=== PATIENT | female | born 1940 | race Two or more races ===

== ENCOUNTER 2017-02-26 15:40 | Outpatient (CLI) | payer MEDICARE, BC | END 2017-02-26 23:59 | disposition home or self-care (01) | LOC: WOU 15:40 | PROVIDERS: ATTEND Surgery | DX: S81.812A Laceration without foreign body, left lower leg, initial encounter (principal); W22.8XXA Striking against or struck by other objects, initial encounter; Y92.89 Other specified places as the place of occurrence of the external cause | CPT/HCPCS: 11042; 87070; A6402; A6407 ==

== ENCOUNTER 2017-02-27 11:59 | Outpatient (CLI) | payer MEDICARE, BC ==
[2017-02-27 13:30] LABS: BASOPHILS % (AUTO) 0.3 % (0.0-2.0); EOSINOPHILS # (AUTO) 0.1 /CMM (0.0-0.7); EOSINOPHILS % (AUTO) 1.3 % (0.0-6.0); HEMATOCRIT 42 % (33-45); HEMOGLOBIN 14.3 g/dL (11.5-14.8); LYMPHOCYTES # (AUTO) 0.8 /CMM (0.8-4.8); LYMPHOCYTES % (AUTO) 12.1 % (20.0-44.0); MEAN CORPUSCULAR HEMOGLOBIN 31 PG (26.0-33.0); MEAN CORPUSCULAR HGB CONC 34 g/dl (31.0-36.0); MEAN CORPUSCULAR VOLUME 93 fL (82-100); MONOCYTES # (AUTO) 0.4 /CMM (0.1-1.30); MONOCYTES % (AUTO) 6.1 % (2.0-12.0); NEUTROPHILS % (AUTO) 80.2 % (43.0-81.0); PLATELET COUNT (AUTO) 304 /CMM (150-450); RDW COEFFICIENT OF VARIATION 12.9 (11.5-15.0); RED BLOOD CELL COUNT(AUTO) 4.55 MIL/uL (4.0-5.2); WHITE BLOOD COUNT (AUTO) 6.2 K/uL (4.3-11.0)
[2017-02-27 13:32] LABS: PREALBUMIN 19.6 MG/DL (18.0-35.7)
[2017-02-27 13:34] LABS: C-REACTIVE PROTEIN < 0.2 mg/dL (0.0-0.9)
[2017-02-27 13:35] LABS: ALANINE AMINOTRANSFERASE 33 U/L (12-78); ALBUMIN 3.6 g/dL (3.4-5.0); ALKALINE PHOSPHATASE 92 U/L (46-116); ASPARTATE AMINOTRANSFERASE 27 U/L (15-37); BILIRUBIN,TOTAL 0.7 mg/dL (0.2-1.0); CARBON DIOXIDE 30 mmol/L (21-32); CHLORIDE 104 mmol/L (98-107); CREATININE 0.7 mg/dL (0.6-1.3); GLUCOSE 110 mg/dL (74-106); POTASSIUM 3.8 mmol/L (3.5-5.1); SODIUM SERUM 142 mmol/L (136-145); UREA NITROGEN, BLOOD 16 mg/dL (7-18)
== END 2017-02-27 23:59 | disposition home or self-care (01) ==
LOC: WOU 11:59
PROVIDERS: ATTEND Surgery
DX: S81.802A Unspecified open wound, left lower leg, initial encounter (principal); X58.XXXA Exposure to other specified factors, initial encounter; Y92.89 Other specified places as the place of occurrence of the external cause
CPT/HCPCS: 36415; 80053; 84134; 85025; 86140; 93925; A6402 ×3; A6407

== ENCOUNTER 2017-03-05 14:08 | Outpatient (CLI) | payer MEDICARE, BC | END 2017-03-05 23:59 | disposition home health service (06) | LOC: WOU 14:08 | PROVIDERS: ATTEND Surgery | DX: S71.112A Laceration without foreign body, left thigh, initial encounter (principal); W22.8XXA Striking against or struck by other objects, initial encounter; Z79.2 Long term (current) use of antibiotics; A49.8 Other bacterial infections of unspecified site; A31.9 Mycobacterial infection, unspecified | CPT/HCPCS: 11043; A6402; A6407 ==

== ENCOUNTER 2017-03-12 14:10 | Outpatient (CLI) | payer MEDICARE, BC | END 2017-03-12 23:59 | disposition home health service (06) | LOC: WOU 14:10 | PROVIDERS: ATTEND Surgery | DX: S71.112A Laceration without foreign body, left thigh, initial encounter (principal); W22.8XXA Striking against or struck by other objects, initial encounter; Z79.2 Long term (current) use of antibiotics; A49.8 Other bacterial infections of unspecified site; A31.9 Mycobacterial infection, unspecified | CPT/HCPCS: 11042; A6402 ==

== ENCOUNTER 2017-03-26 13:55 | Outpatient (CLI) | payer MEDICARE, BC | END 2017-03-26 23:59 | disposition home health service (06) | LOC: WOU 13:55 | PROVIDERS: ATTEND Surgery | DX: S71.112A Laceration without foreign body, left thigh, initial encounter (principal); W22.8XXA Striking against or struck by other objects, initial encounter; Z79.2 Long term (current) use of antibiotics; A31.9 Mycobacterial infection, unspecified; Z89.022 Acquired absence of left finger(s); B96.5 Pseudomonas (aeruginosa) (mallei) (pseudomallei) as the cause of diseases classified elsewhere | CPT/HCPCS: 11042; A6402 ==

== ENCOUNTER 2017-04-09 13:50 | Outpatient (CLI) | payer MEDICARE, BC | END 2017-04-09 23:59 | disposition home or self-care (01) | LOC: WOU 13:50 | PROVIDERS: ATTEND Surgery | DX: S81.812D Laceration without foreign body, left lower leg, subsequent encounter (principal); V48.4XXD Person boarding or alighting a car injured in noncollision transport accident, subsequent encounter; Y92.89 Other specified places as the place of occurrence of the external cause; M19.90 Unspecified osteoarthritis, unspecified site; Z87.891 Personal history of nicotine dependence; Z79.899 Other long term (current) drug therapy | CPT/HCPCS: A6402; G0463 ==